=== PATIENT | female | born 1985 ===

== ENCOUNTER 2020-10-01 12:09 | Inpatient (IN) | payer OTHER ==
[~2020-10-01] VITALS: Ht 154.9 cm; Wt 66.7 kg
[2020-10-01] MEDS ORDERED: PRENATAL CAPLE1 EAC1 PO (13:03)
[2020-10-02] MEDS ORDERED: CETIRIZINE HCL10 MG (14:57)
== END 2020-10-03 19:07 | disposition home or self-care (01) | DRG 807 ==
LOC: LDR 12:09 → OB/GYN 12:09
PROVIDERS: ADMIT Specialist; ATTEND Specialist
PROC: 10E0XZZ Delivery of Products of Conception, External Approach (ICD-10-PCS; principal; 2020-10-01)
PROC: 0UQMXZZ Repair Vulva, External Approach (ICD-10-PCS; 2020-10-01)
PROC: 4A1HXFZ Monitoring of Products of Conception, Cardiac Rhythm, External Approach (ICD-10-PCS; 2020-10-01)
DX: O42.113 Preterm premature rupture of membranes, onset of labor more than 24 hours following rupture, third trimester (principal); Z37.0 Single live birth; O70.0 First degree perineal laceration during delivery; Z3A.36 36 weeks gestation of pregnancy